=== PATIENT | female | born 1980 | race African-American/Black ===

== ENCOUNTER 2020-06-16 10:40 | Day surgery (SDC) | payer BC, SELFPAY ==
--- NOTE | 2020-06-14 16:57 | HP.PCM_ITS ---
History and Physical Date of Admission: 06/09/20 Joana Yo Physician Specialty: CATEGORY DEVELOPMENT ANALYST H&P Signed Encounter Date: 06/14/2020 Expand AllCollapse All Hide copied text Vicente for details Neelima Reyes is a 39 year old female who presents for mgmt options regarding AUB. Pt saw BOARD OF DIRECTORS and was having large clots with BTB with ocps. Pt has h/o Polyps with removal. Pt scheduled for Hysteroscopy, D&C, polypectomy ? PAST MEDICAL HISTORY PAST MEDICAL HISTORY Diagnosis Date ? Anxiety ? ? Arnold-Chiari malformation, type I (HCC) ? ? diagnosed on MRI November 2011 ? Cervical muscle strain ? ? BWC claim 2011 ? History of cervical polypectomy ? ? Dr. Chasity Jones ([place] [facility]) ? Microcytic anemia ? ? Neck pain 12/29/2012 ? Occipital headache 12/29/2012 ? Paroxysmal SVT (supraventricular tachycardia) (HCC) ? ? did see dermatology sales representative with [facility]; treated with Atenolol in the past. Controlled with Atenolol ? PSVT (paroxysmal supraventricular tachycardia) (HCC) 12/31/2012 ? Right arm numbness 12/29/2012 ? PAST SURGICAL HISTORY PAST SURGICAL HISTORY Procedure Laterality Date ? COLONOSCOPY ? ? ? X2 ? HYSTEROSCOPY WBX WWO D AND C ANDOR POLYPECTOMY ? 2014 ? endometrial polyps ? PAST SURGICAL HISTORY OF ? ? ? D&C for cervical polyp and problesm with heavy periods with pain; everything turned out benign ? PAST SURGICAL HISTORY OF ? 2012, 2013 ? CRANIECTOMY SUBOCCIPITAL ? PAST SURGICAL HISTORY OF ? 2007 ? lipoma ? FAMILY HISTORY FAMILY HISTORY Problem Relation Age of Onset ? Hypertension Mother ? ? Lipids Mother ? ? Seizures Mother ? ? Headache Mother ? ? Hypertension Father ? ? Lipids Father ? ? Cervical Cancer Maternal Grandmother ? ? Breast Cancer Maternal Grandmother ? ? Coronary Artery Disease Maternal Grandfather ? ? Had [place] ? Heart Maternal Grandfather ? ? [place] ? Prostate Cancer Paternal Grandfather ? ? Diabetes Maternal Aunt ? ? Diabetes Maternal Uncle ? ? other (Bone Cancer) Maternal Aunt ? ? Leg; primary bone cancer ? other (anemia) Sister ? ? since childhood; uncertain cause ? other (Heart murmur) Sister ? ? Benign ? other (Chiari malformation) Sister ? ? s/p decompression ? SOCIAL HISTORY Social History ? Tobacco Use ? Smoking status: Never Smoker ? Smokeless tobacco: Never Used Substance Use Topics ? Alcohol use: No ? Drug use: Never ? CURRENT MEDICATIONS Current Outpatient Medications Medication Sig ? gabapentin (NEURONTIN) 600 mg tablet Take 2 tablets by mouth three times daily for 180 days. ? ibuprofen (MOTRIN) 600 mg tablet Take 1 tablet by mouth every 6 hours as needed. ? atenolol (TENORMIN) 25 mg tablet Take 1 tablet by mouth once daily. ? DULoxetine (CYMBALTA) 60 mg capsule Take 1 capsule by mouth once daily. ? Norethindrn A-E Estradiol-Iron (LOMEDIA 24 FE) 1 mg-20 mcg (24)/75 mg (4) tab Take 1 tablet by mouth once daily. ? tiZANidine (ZANAFLEX) 2 mg tablet Take 1 tablet by mouth at bedtime as needed. ? Omeprazole (PRILOSEC) 40 mg capsule Take 1 capsule by mouth once daily. ? busPIRone (BUSPAR) 5 mg tablet Take 1 tablet by mouth twice daily. ? No current facility-administered medications for this visit. ? Allergies As of Date: 06/14/2020 (No Known Allergies) Fully Assessed 05/19/2020 ? ? REVIEW OF SYSTEMS Abdomen: no pain Bladder: no dysuria.. Expanded ROS: GENERAL: Negative for fever Allergies and current medication updated:Yes ? EXAM: BP 136/80 Ht 5' 0 (1.52m) Wt 153 lb (69.4kg) LMP 05/16/2020 BMI 29.88 kg/(m^2). GENERAL: pleasant, female in no apparent distress HEENT: Normocephalic and atraumatic DERMATOLOGY: Normal, without lesions and non-icteric NEURO: alert and oriented x3,exam grossly non-focal EXTREMITIES: normal ? ASSESSMENT AND PLAN: Encounter Diagnosis ? ? ICD-10-CM ? 1. Abnormal uterine bleeding (AUB) N93.9 ? 2. Endometrial polyp N84.0 ? ? 3. Pt has been counseled on risks/benefits and alternatives of surgery including but not limited to anesthesia, bleeding, infection, uterine perforation with subsequent injury to pelvic structures including bowel, bladder, ureters and vessels. Pt wishes to proceed with surgery at this time. 4. Post op restrictions reviewed 5. Covid testing reviewed ? ? Joana Wu MD ? ?
[2020-06-16] VITALS (7 sets, daily range): BP systolic 130–152; BP diastolic 76–98; PULSE 86–106; RESP 16–18; TEMP 36.2–36.8; O2SAT 100; BMI 29.9
[2020-06-16 11:03] LABS: Hematocrit 40.3 % (37-47); Hemoglobin 13.1 g/dL (12.0-15.0); Mean Corp Hgb Conc 32.5 g/dL (32-36); Mean Corpuscular Hgb 29.6 pg (27.0-32.0); Mean Corpuscular Volume 91.2 fL (81-99); Mean Platelet Vol. 9.5 fl (6.2-12.0); Platelet Count 335 K/mm3 (150-450); RBC Distribution Width CV 13.2 % (11.6-14.6); RBC Distribution Width SD 43.9 fl (35.1-43.9); Red Blood Count 4.42 M/mm3 (4.2-5.4); White Blood Count 6.1 K/mm3 (4.4-11.0)
[2020-06-16 11:08] LABS: Internal QC Validated? YES +Cl - CLEAR BKGD
[2020-06-16 11:11] LABS: Pregnancy, Urine Negative Negative
[2020-06-16] MEDS: Lactated Ringers 1,000 ML 100 ML IV ×2 (11:30→13:59)
--- NOTE | 2020-06-16 12:15 | EMB_PTH ---
PATIENT: ASTON LAYNE LOC: [facility] [place] U#:[id number] AGE/SX: 39/F ROOM: RE06/16/[address]: Dr. Joana Wu, MDDOB: 1980 BED: DIS: 06/16/2020 SPEC #: [id number] RECD: 06/16/20 15:16 STATUS: DIAMANTE RELori #: [id number] SANJANA: 06/16/20 12:[address]: Joana Wu DEPT: SURGICAL PATHOLOGY RECD BY: Kay Gutierrez ENTERED: 06/17/20 06:38 SP TYPE: ENDOM BX/C OTHR DR: Dr. Chasity Brand MD Tissues: Endometrium, NOS Procedures: Surgery Specimen Level IV HEADER OPERATION: Hysteroscopy, D & C PRE-OP DIAGNOSIS: Abnormal uterine bleeding; endometrial polyps TISSUE SUBMITTED: Endometrial curettings MICROSCOPIC DIAGNOSIS Endometrium, curettings: Fragments of benign superficial endometrium, inactive. Scant fragments of benign superficial endocervix with squamous metaplasia and rare detached benign squamous epithelium. AM:yvrose 06/20/20 MICROSCOPIC DESCRIPTION Slides are reviewed. GROSS DESCRIPTION Received in fixative is one container labeled with the patient's name and designated endometrial curettings. The specimen consists of multiple fragments of hemorrhagic soft tissue that in aggregate measure 3 x 2.5 x 0.3 cm. The specimen is totally submitted in one cassette. / VENKAT:yvrose 06/17/20 TC:5 CPT: 81350
--- NOTE | 2020-06-16 13:08 | DCINST_ITS ---
Discharge Diet: No Restrictions Discharge Activity: Return to Normal Activity, May Shower, May Take a Tub Bath - in 2 weeks. May resume sexual activity in: 1 week Lifting Restrictions: no restrictions Call your doctor if you observe: Fever of 101 or Higher, Using more than one pad per hour Allergies/Adverse Reactions: Allergies No Known Allergies Allergy (Verified 06/16/20 10:51) Medications to take at Discharge Atenolol [Tenormin (beta Lilia)] 25 mg PO DAILY 06/06/20 Docusate Sodium [Stool Softener] 200 mg PO DAILY 06/06/20 Duloxetine HCl 60 mg PO QHS 06/06/20 Gabapentin [Neurontin] 1,200 mg PO TIDCM 06/06/20 Multivitamin with Minerals [Hair, Skin & Nails] 1 ea PO DAILY 06/06/20 Multivitamin with Minerals [Multiple Vitamin] 1 ea PO DAILY 06/06/20 Norethindrone-E.estradiol-Iron [Junel Fe 24 Tablet] 1 ea PO DAILY 06/06/20 Tizanidine HCl [Zanaflex] 2 mg PO QHS PRN 06/06/20 busPIRone [Buspar] 5 mg PO DAILY 06/06/20 Primary Care Physician: Chasity Brand MD [Primary Care Provider] - Test Results: Test results from this visit will be discussed in further detail at your follow- up appointment, if applicable. Please Follow Up With: Joana Wu MD When: as scheduled in 2 weeks
--- NOTE | 2020-06-16 13:30 | PCM.OPRPT ---
Report of Operation Date of Procedure: 06/16/20 - start time: 1321, end time 1330 Pre-Operative Diagnosis: AUB. Endometrial polyp Post-Operative Diagnosis: AUB Surgery/Procedure Performed:: Hysteroscopy, D&C Description of Surgical Findings:: Normal endometrium, bilateral tubal ostia visualized, uterus sounded to 8cm Type of Anesthesia:: MAC Special Medications: none Specimen's removed: endometrial curettings Drains: none Estimated Blood Loss (mL): <5cc Fluids Replaced: 400 Description of Procedure: informed consent was obtained the patient was taken the operating room she was placed in supine position. She was given anesthesia. She was then placed in the [facility] where she was prepped and draped in the normal sterile fashion. bladder drained. At this time the weighted speculum was placed in the posterior fornix of vagina. Single-tooth tenaculum was used to gently grasp the anterior lip the cervix. At this time the uterine cavity was sounded to approximately 8 cm. Gentle dilatation was performed once adequate dilatation of the cervix was achieved the hysteroscope using normal saline as a distention medium was placed. Tubal ostia visualized no polypoid tissue identified. This time hysteroscopy was complete. Gentle sharp curettage performed. endometrial curettings obtained. Tissue will be sent to pathology for evaluation. Tenaculum removed. Good hemostasis. Instrument, lap count correct x 2. Vaginal Sweep was negative. Grafts/Implants Used: none - Complications none - Admit VTE Documentation VTE Present on Admission: Yes VTE Mechan Device Prophylaxis: SCD's VTE Pharm Prophylaxis ordered?: No
[2020-06-16] MEDS: HYDROcodone Bitartrate/Apap 5/325 Tablet PO (14:51)
== END 2020-06-16 15:42 | disposition home or self-care (01) ==
LOC: SDC 10:40 → AC 10:42
PROVIDERS: Anesthesiology; PCP Internal Medicine; Referring Provider Obstetrics & Gynecology; Visit Provider Obstetrics & Gynecology
PROC: 0UB98ZZ Excision of Uterus, Via Natural or Artificial Opening Endoscopic (ICD-10-PCS; CPT 58558; principal; 2020-06-16 12:00)
DX: N87.9 Dysplasia of cervix uteri, unspecified (principal); F41.9 Anxiety disorder, unspecified; F32.9 Major depressive disorder, single episode, unspecified; G93.5 Compression of brain; Z86.73 Personal history of transient ischemic attack (TIA), and cerebral infarction without residual deficits; Z20.828 Contact with and (suspected) exposure to other viral communicable diseases; Z79.899 Other long term (current) drug therapy
CPT/HCPCS: 00952; 58558; 36415; 81025; 85027; 87635; 88305; C9803; J7120; U0003

== ENCOUNTER 2020-11-10 11:19 | Day surgery (SDC) | payer OTHER, SELFPAY ==
[2020-06-16 11:13] VITALS: BMI 29.9
--- NOTE | 2020-11-08 12:21 | PCM.HP.BLA ---
History and Physical Date of Admission: 11/10/20 Pre-Op History and Physical ? HPI: The patient is a 39 year old female presenting for discussion regarding management of fibroid. Pt has a 6cm pedunculated fibroid that she feels is causing her abdominal discomfort and pressure. After discussion regarding management options including expectant pt would like to proceed with surgical intervention. Pt understands that if the fibroid is not pedunculated by subserosal or intramural this could breach the uterine cavity and can impact future child bearing. She is scheduled for Diagnostic laparoscopy, Myomectomy possible ex lap, for pelvic pain and fibroid uterus on 11/10/20. Procedure discussed along with risks, benefits and complications. Other alternatives discussed for management. Consent form signed? Yes. ? ? PAST MEDICAL HISTORY PAST MEDICAL HISTORY Diagnosis Date ? Anxiety ? ? Arnold-Chiari malformation, type I (HCC) ? ? diagnosed on MRI November 2011 ? Cervical muscle strain ? ? C claim 2011 ? History of cervical polypectomy ? ? Dr. Chasity Jones ([place] [facility]) ? Microcytic anemia ? ? Neck pain 12/29/2012 ? Occipital headache 12/29/2012 ? Paroxysmal SVT (supraventricular tachycardia) (HCC) ? ? did see trailer truck driver with [facility]; treated with Atenolol in the past. Controlled with Atenolol ? PSVT (paroxysmal supraventricular tachycardia) (HCC) 12/31/2012 ? Right arm numbness 12/29/2012 ? ? PAST SURGICAL HISTORY PAST SURGICAL HISTORY Procedure Laterality Date ? COLONOSCOPY ? ? ? X2 ? HYSTEROSCOPY BX W/WO D&C ? 05/2020 ? [facility]- benign- no polyps. Dr. Yo ? HYSTEROSCOPY WBX O D AND C ANDOR POLYPECTOMY ? 2014 ? endometrial polyps ? PAST SURGICAL HISTORY OF ? 06/16/2020 ? D&C for cervical polyp and problesm with heavy periods with pain; everything turned out benign ? PAST SURGICAL HISTORY OF ? 2012, 2013 ? CRANIECTOMY SUBOCCIPITAL ? PAST SURGICAL HISTORY OF ? 2007 ? lipoma ? ? ? CURRENT MEDICATIONS Current Outpatient Medications Medication Sig Dispense Refill ? atenolol (TENORMIN) 25 mg tablet Take 1 tablet by mouth once daily. 90 tablet 3 ? DULoxetine (CYMBALTA) 60 mg capsule Take 1 capsule by mouth once daily. 30 capsule 3 ? Norethindrone Acet-Ethinyl Est (LOESTRIN 1.5, ,) 1.5-30 mg-mcg Take 1 tablet by mouth once daily. 1 Package 11 ? busPIRone (BUSPAR) 5 mg tablet Take 1 tablet by mouth twice daily. 180 tablet 0 ? tiZANidine (ZANAFLEX) 2 mg tablet Take 1 tablet by mouth at bedtime as needed. 30 tablet 2 ? omeprazole (PRILOSEC) 40 mg capsule Take 1 capsule by mouth once daily. 90 capsule 3 ? ibuprofen (MOTRIN) 600 mg tablet Take 1 tablet by mouth every 6 hours as needed. 60 tablet 2 ? gabapentin (NEURONTIN) 600 mg tablet Take 2 tablets by mouth three times daily for 180 days. 180 tablet 5 ? ibuprofen (MOTRIN) 600 mg tablet Take 1 tablet by mouth every 6 hours as needed. 30 tablet 1 ? simethicone, chewable (MYLICON) 80 mg chewable tablet Take 1 tablet by mouth every 6 hours as needed. 30 tablet 0 ? No current facility-administered medications for this visit. ? ? ALLERGIES: Patient has no known allergies. ? PERSONAL HISTORY: SOCIAL HISTORY Social History ? Tobacco Use ? Smoking status: Never Smoker ? Smokeless tobacco: Never Used Substance Use Topics ? Alcohol use: No ? Drug use: Never ? FAMILY HISTORY: FAMILY HISTORY FAMILY HISTORY Problem Relation Age of Onset ? Hypertension Mother ? ? Lipids Mother ? ? Seizures Mother ? ? Headache Mother ? ? Hypertension Father ? ? Lipids Father ? ? Cervical Cancer Maternal Grandmother ? ? Breast Cancer Maternal Grandmother ? ? Coronary Artery Disease Maternal Grandfather ? ? Had [place] ? Heart Maternal Grandfather ? ? [place] ? Prostate Cancer Paternal Grandfather ? ? Diabetes Maternal Aunt ? ? Diabetes Maternal Uncle ? ? other (Bone Cancer) Maternal Aunt ? ? Leg; primary bone cancer ? other (anemia) Sister ? ? since childhood; uncertain cause ? other (Heart murmur) Sister ? ? Benign ? other (Chiari malformation) Sister ? ? s/p decompression ? ? REVIEW OF SYMPTOMS: negative except as noted above PHYSICAL EXAMINATION: ? VITALS: Blood pressure 110/70, weight 160 lb (72.6 kg), last menstrual period 09/22/2020. ? GENERAL: The patient is well nourished, well hydrated in no acute distress. , The patient is oriented to time, place, and person. NECK: full range of motion GENITALIA: deferred WET PREP: Not indicated ? Indication Abnormal uterine bleeding Impression Uterus Normal size and contour. There are two pedunculated fibroids, largest is 6.5cm in greatest dimension on posterior aspect of uterus. the endometrial thickness is 4.8mm, polyp noted at fundal aspect measuring 9mm in greatest dimension. Both ovaries are polycystic no free fluid in cul-de-sac Recommendations consider hysteroscopic resection of endometrial polyp. Follow up as clinically indicated Menstrual History LMP on 05/16/2020 Method Transvaginal, 3D ultrasound examination. Uterus Uterus: Visualized Uterus position: anteverted Uterus long 74 mm Uterus ap 40 mm Uterus tr 44 mm Uterus Vol 67.1 cm? Endometrial thickness, total 4.8 mm Uterine fibroid D1 12 mm Uterine fibroid D2 11 mm Uterine fibroid D3 9 mm Uterine fibroid mean 10.7 mm Uterine fibroid vol 0.622 cm? Uterine fibroids findings: Fundal. Pedunculated Uterine fibroid D1 65 mm Uterine fibroid D2 39 mm Uterine fibroid D3 52 mm Uterine fibroid mean 52.0 mm Uterine fibroid vol 69.021 cm? Uterine fibroids findings: Posterior, right. Pedunculated Uterine polyp D1 9 mm Uterine polyp D2 5 mm Uterine polyp D3 8 mm Uterine polyp mean 7.3 mm Uterine polyp findings: Fundal Right Ovary Rt ovary: Visualized Rt ovary morphology: premenopausal polycystic Rt ovary D1 24 mm Rt ovary D2 20 mm Rt ovary D3 17 mm Rt ovary Vol 4.2 cm? Left Ovary Lt ovary: Visualized Lt ovary morphology: premenopausal polycystic Lt ovary D1 27 mm Lt ovary D2 21 mm Lt ovary D3 16 mm Lt ovary Vol 4.7 cm? Cul de Sac Visualized. no free fluid visualized Performed By: Radha Tidwell RDMS, RVT Read By: Joana Wu M.D. Results ? Scan on 05/27/2020 ?2:35 PM by Joana Yo ? ? ? IMPRESSION: Fibroid uterus, pelvic pain ? PLAN: Diagnostic laparoscopy, Myomectomy, Possible ex lap ? Pt has been counseled on risks/benefits and alternatives of surgery including but not limited to anesthesia, bleeding, infection, injury to pelvic structures including bowel, bladder, ureters and vessels. Pt wishes to proceed with surgery at this time.Pt understands if bleeding and unable to control there is possibility of hysterectomy which would not allow for future child bearing. ? PRE OP instructions reviewed- ERAS protocol reviewed ? Post op meds given- will give narcotic rx if indicated on day of surgery. ? I have reviewed and updated past medical and surgical history, medications and allergies Jaona Yo MD Procedure Criteria Procedure Type: Elective COVID Risk Discussion: The surgeon/proceduralist and patient have discussed in detail the risk of exposure to and/or potential harm posed by the COVID-19 virus with having a surgery/procedure at this time versus the risk of delaying the surgery/procedure. It is not possible to know either the risk of delaying the surgery or procedure or chance of getting an infection with perfect accuracy, but a joint decision was made between the patient and the surgeon/proceduralist to proceed at this time with the scheduled surgery/procedure as indicated on the consent form.
--- NOTE | 2020-11-09 09:44 | EKG12_ITS ---
Test Reason : PRE OP Blood Pressure : / mmHG Vent. Rate : 082 BPM Atrial Rate : 082 BPM P-R Int : 146 ms QRS Dur : 068 ms QT Int : 340 ms P-R-T Axes : 068 058 040 degrees QTc Int : 397 ms Normal sinus rhythm Normal ECG Confirmed by LINDSAY MAI, DANNA ([id number]), magazine editor BRIANNA VEGA ([id number]) on 11/10/2020 12:24:36 PM Referred By: Joana Wu Confirmed By:GENESIS MONTOYA MD
[2020-11-10 12:00] LABS: Hematocrit 37.9 % (37-47); Hemoglobin 12.3 g/dL (12.0-15.0); Mean Corp Hgb Conc 32.5 g/dL (32-36); Mean Corpuscular Hgb 29.1 pg (27.0-32.0); Mean Corpuscular Volume 89.8 fL (81-99); Mean Platelet Vol. 9.5 fl (6.2-12.0); Platelet Count 367 K/mm3 (150-450); RBC Distribution Width SD 42.8 fl (35.1-43.9); Red Blood Count 4.22 M/mm3 (4.2-5.4); White Blood Count 6.5 K/mm3 (4.4-11.0)
[2020-11-10] MEDS: Lactated Ringers 1,000 ML 40 ML IV (12:02)
[2020-11-10 12:03] LABS: Internal QC Validated? YES +Cl - CLEAR BKGD; Pregnancy, Urine Negative Negative
[2020-11-10 12:06] VITALS: BP 122/83; PULSE 81; RESP 18; TEMP 37.5; O2SAT 100; BMI 31.4
[2020-11-10 12:13] LABS: Anion Gap 5 (5-15); BUN 6 mg/dL (7-18); BUN/Creat Ratio 6.8 RATIO (10-20); Calcium,Total 8.7 mg/dL (8.5-10.1); Chloride 108 mmol/L (98-107); Creatinine, Serum 0.89 mg/dL (0.55-1.02); EST Glomerular Filtration Rate 76 mL/min (>60); Est Glom Filt Rate - Afr Amer 92 mL/min (>60); Estimated Creatinine Clearance 62.16 ml/min; Glucose 181 mg/dL (74-106); Potassium 3.6 mmol/L (3.5-5.1); Sodium Level 138 mmol/L (136-145)
[2020-11-10] MEDS: Acetaminophen 500 MG Tablet 1000 MG PO (12:14)
[2020-11-10] MEDS: Scopolamine 1mg/72hr Patch 1 PATCH TD (12:21)
[2020-11-10] MEDS: Celecoxib 200 MG Capsule 400 MG PO (12:22)
--- NOTE | 2020-11-10 12:26 | DCINST_ITS ---
Discharge Diet: No Restrictions, - - Increase fluid intake for 48 hours. Discharge Activity: Return to Normal Activity, May Drive - when you are no longer taking narcotic pain medications., May Shower, May Take a Tub Bath - in 7 days., - - Ambulate often the next week after surgery. May shower in (days): 1 May resume sexual activity in: 2 weeks Lifting Restrictions: 20-25 Additional Activity Instructions:: Nothing in the vagina for the next 5 days. Call your doctor if your incision/area has: Continuous Slow Oozing, Sudden Increased Bleeding, Increased Pain/ Swelling, Increased Redness, Foul Smelling Discharge, Swelling at the incision site Call your doctor if you observe: Fever of 101 or Higher, Using more than one pad per hour Cleanse incision/area with: Keep Dressing Clean & Dry, - - Skin glue over your incision, do not pick it off. You may let soap and water run over the incision sites and dab dry. Allergies/Adverse Reactions: Allergies No Known Allergies Allergy (Verified 11/10/20 11:59) Medications to take at Discharge Atenolol [Tenormin (beta Lilia)] 25 mg PO DAILY 06/06/20 Docusate Sodium [Stool Softener] 200 mg PO DAILY 06/06/20 Gabapentin [Neurontin] 1,200 mg PO TIDCM 06/06/20 Multivitamin with Minerals [Multiple Vitamin] 1 ea PO DAILY 06/06/20 Norethindrone-E.estradiol-Iron [Junel Fe 24 Tablet] 1 ea PO DAILY 06/06/20 RX: Duloxetine HCl 60 mg PO QHS 06/06/20 Tizanidine HCl [Zanaflex] 2 mg PO QHS PRN 06/06/20 busPIRone [Buspar] 5 mg PO DAILY 06/06/20 Ascorbic Acid/Vitamin E/Biotin [Hair Skin Nails-Biotin Gummies] 2 each PO DAILY 11/03/20 Cholecalciferol (Vitamin D3) [Vitamin D3] 125 mcg PO DAILY 11/03/20 Cider Vinegar [Apple Cider Vinegar] 1,000 mg PO DAILY 11/03/20 Inulin/Chromium Picolinate [Fiber Gummies] 2 each PO DAILY 11/03/20 Primary Care Physician: Chasity Brand MD [Primary Care Provider] - Test Results: Test results from this visit will be discussed in further detail at your follow- up appointment, if applicable. Please Follow Up With: Joana Wu MD When: 2 weeks call [phone] if you need to be scheduled
--- NOTE | 2020-11-10 12:29 | DCINST_ITS ---
- Discharge Diagnoses Current Active Problems: fibroid uterus You will use the following diet at home:: No restrictions Your food should be the consistency of: Regular Discharge Activity: Return to Normal Activity, May Drive - when pain is controlled, May not drive while taking narcotic pain medications., May Shower May shower in (days): 1 May resume sexual activity in: 2 weeks Lifting Restrictions: 20-25lbs Call your doctor if your incision/area has: Continuous Slow Oozing, Sudden Increased Bleeding, Increased Pain/ Swelling, Increased Redness, Foul Smelling Discharge, Swelling at the incision site Call your doctor if you observe: Fever of 101 or Higher, Using more than one pad per hour, Uncontrolled pain Cleanse incision/area with: Keep Dressing Clean & Dry, - - You have skin glue over your incision sites, do not pick it off. You may let soap and water run over the incisions and dab dry. Instructions: ED Tumor, Uncertain Cause Allergies/Adverse Reactions: Allergies No Known Allergies Allergy (Verified 11/10/20 11:59) Medications to take at Discharge Atenolol [Tenormin (beta Lilia)] 25 mg PO DAILY 06/06/20 Docusate Sodium [Stool Softener] 200 mg PO DAILY 06/06/20 Duloxetine HCl 60 mg PO QHS 06/06/20 Gabapentin [Neurontin] 1,200 mg PO TIDCM 06/06/20 Multivitamin with Minerals [Multiple Vitamin] 1 ea PO DAILY 06/06/20 Norethindrone-E.estradiol-Iron [Junel Fe 24 Tablet] 1 ea PO DAILY 06/06/20 Tizanidine HCl [Zanaflex] 2 mg PO QHS PRN 06/06/20 busPIRone [Buspar] 5 mg PO DAILY 06/06/20 Ascorbic Acid/Vitamin E/Biotin [Hair Skin Nails-Biotin Gummies] 2 each PO DAILY 11/03/20 Cholecalciferol (Vitamin D3) [Vitamin D3] 125 mcg PO DAILY 11/03/20 Cider Vinegar [Apple Cider Vinegar] 1,000 mg PO DAILY 11/03/20 Inulin/Chromium Picolinate [Fiber Gummies] 2 each PO DAILY 11/03/20 Primary Care Physician: Chasity Brand MD [Primary Care Provider] - Test Results: Test results from this visit will be discussed in further detail at your follow- up appointment, if applicable. Please Follow Up With: Joana Wu MD When: 2 weeks call [phone] for appointment if you need to schedule
[2020-11-10 12:30] LABS: Bedside Glucose 172 mg/dL (70-110)
[2020-11-10] MEDS: Ondansetron 4 MG/2 ML Vial IV (13:10)
[2020-11-10] MEDS: Bupivacaine Mpf 0.5% 30 ML VIAL (13:15)
--- NOTE | 2020-11-10 13:15 | UT_PTH ---
PATIENT: ASTON LAYNE LOC: [facility] [place] U#:[id number] AGE/SX: 39/F ROOM: RE11/10/[address]: Dr. Joana Wu, MDDOB: 1980 BED: DIS: 11/10/2020 SPEC #: [id number] RECD: 11/10/20 15:14 STATUS: DIAMANTE EMMANUEL #: [id number] SANJANA: 11/10/20 13:[address]: Joana Wu DEPT: SURGICAL PATHOLOGY RECD BY: Kay Gutierrez ENTERED: 11/11/20 06:28 SP TYPE: UTERUS OTHR DR: Dr. Chasity Brand MD Tissues: Uterus, NOS Procedures: Surgery Specimen Level IV HEADER OPERATION: ERAS, diagnostic laparoscopy, myomectomy, mini laparotomy PRE-OP DIAGNOSIS: Fibroid uterus, pelvic pain TISSUE SUBMITTED: Uterine fibroid MICROSCOPIC DIAGNOSIS Uterine fibroid, myomectomy: Leiomyomas (1.5 and 6 cm in greatest dimension). VENKAT:yvrose 11/14/2020 MICROSCOPIC DESCRIPTION Slides are reviewed. GROSS DESCRIPTION Received in fixative is one container labeled with the patient's name and designated uterine fibroid. The specimen consists of two firm nodules weighing in aggregate 65 gm and measuring 1.5 x 1.5 x 1 cm and 6 x 5 x 3.5 cm. Sections of these masses reveal rucker whorled cut surfaces without areas of hemorrhage, necrosis or cystic degeneration. The larger mass also shows focal area of congestion. Blacking Machine Operator sections are submitted in six cassettes as follows: 1 - smaller nodular mass, 2-6 - larger nodular mass. / VENKAT:yvrose 11/11/20 TC:1 CPT: 37439
[2020-11-10] MEDS: Triamcinolone Acetonide 40 MG/ML Vial (14:17)
--- NOTE | 2020-11-10 14:20 | OP.PCM_ITS ---
Report of Operation Date of Procedure: 11/10/20 - start time: 1312 End time: 1437 Pre-Operative Diagnosis: fibroid uterus, pelvic pain Post-Operative Diagnosis: same, left inguinal hernia Surgery/Procedure Performed:: Laparoscopic Myomectomy of pedunculated fibroids Description of Surgical Findings:: large loculated fibroid arising from the posterior aspect of the uterus as well as a smaller fibroid arising at the fundal aspect. left inguinal hernia noted. The left tube was pulled into the inguinal hernia it was easily released. Both ovaries appeared normal. electronic science teacher: Nico Oro- assisted with camera manipulation, Manipulation of uterus and removal of fibroids from cavity and suturing skin. No qualified resident available Type of Anesthesia:: General Special Medications: 0.5% marcaine, Kenalog 40mg Specimen's removed: uterine fibroids Drains: none Estimated Blood Loss (mL): 25 Fluids Replaced: 1000 Description of Procedure: Was taken to the operating room where she was placed in the supine position. She was prepped and draped in normal sterile fashion. At this time the bladder was drained minimal urine at that time was expelled. At this time the weighted speculum is placed in the posterior fornix vagina single-tooth tenaculum was used to digress anterior lip the cervix. At this time uterine manipulator was placed that difficulty. Attention was then turned to the abdominal portion where the legs were then placed in parallel with the abdomen. At this time 2 towel clamps were placed superior to the umbilicus percent Marcaine was injected and the previous keloid scarred incision was removed and a small incision was made and a 5 mm trocar was placed under direct visualization. Once proper placement was achieved gas was used to insufflate the intra-abdominal cavity. On inspection of the cavity large pedunculated fibroid extending up the posterior aspect of the uterus as well as a fundal smaller fibroid that was pedunculated. At this time to lower quadrant ports were placed first Marcaine was injected in the right and left lower quadrant ports were placed under direct visualization. At this time the LigaSure with the monopolar tip was used to coagulate and ligate across the base of the pedunculated fibroid. The larger fibroid was placed in the posterior cul-de-sac and the smaller fundal fibroid was then coagulated and ligated across the base of the pedunculated fibroid. This was also placed in the posterior cul-de-sac. At this time a suprapubic incision was made. Marcaine was first injected knife was used to make this incision fascia was identified and grasped with Bunker's and entered using the scalpel. At this time the edges of the fascia were tagged with a 0 Vicryl suture. And the large tear fibroid was brought through the uterine incision intact. I was unable to get the smaller fibroid in the same bag so at this time a second bag was deployed through the suprapubic incision the towel clamps were used to create a seal in the abdominal he was reinsufflated and the smaller fibroid was placed in the bag and carried out through the suprapubic port. This time then the suprapubic incision was closed using 0 Vicryl on a UR 6 needle. Fascia was closed subcu layer was then closed using a 2-0 Vicryl in a running fashion. At this time the gas was turned back on the abdominal cavity was reinsufflated and inspection was performed. Malik was placed over the p osterior aspect of the base of the removed fibroid as well as the fundal aspect. Excellent hemostasis was appreciated irrigation was performed in the cul-de-sac. The trochars were then removed without difficulty. At this time the right and left lower quadrant ports were closed using 4-0 Monocryl. The suprapubic incision was closed using 4-0 Monocryl in a subcutaneous fashion. The supraumbilical vision and resection of the previous scar was closed using 4- 0 Monocryl in a subcutaneous fashion. Kenalog 40 mg total was injected around these larger incision sites to prevent keloid formation. Instrument lap needle count were correct x2. There were no complications with this procedure. Anticipated normal postoperative course. Grafts/Implants Used: none - Complications none - Admit VTE Documentation VTE Present on Admission: Yes VTE Mechan Device Prophylaxis: SCD's VTE Pharm Prophylaxis ordered?: No
[2020-11-10 14:47] VITALS: BP 122/83; BP 128/90; PULSE 79; RESP 16; TEMP 36.8; O2SAT 97
[2020-11-10] MEDS: Lactated Ringers 1,000 ML 70 ML IV (14:55)
[2020-11-10 15:00] VITALS: BP 122/83; BP 130/92; PULSE 84; RESP 16; O2SAT 100
[2020-11-10 15:15] VITALS: BP 122/83; BP 132/91; PULSE 88; RESP 16; O2SAT 100
[2020-11-10 15:30] VITALS: BP 122/83; BP 134/93; PULSE 82; RESP 16; TEMP 37.1; O2SAT 100
[2020-11-10] MEDS: HYDROcodone Bitartrate/Apap 5/325 Tablet PO (16:31)
[2020-11-10 16:43] VITALS: BP 122/83; BP 132/80; PULSE 87; RESP 16; TEMP 37.1; O2SAT 98
== END 2020-11-10 16:56 | disposition home or self-care (01) ==
LOC: SDC 11:22 → AC 11:23
PROVIDERS: Anesthesiology; PCP Internal Medicine; Referring Provider Obstetrics & Gynecology; Visit Provider Obstetrics & Gynecology
PROC: (CPT 49320; principal; 2020-11-10 13:00)
DX: D25.9 Leiomyoma of uterus, unspecified (principal); K40.90 Unilateral inguinal hernia, without obstruction or gangrene, not specified as recurrent; F41.9 Anxiety disorder, unspecified; F32.9 Major depressive disorder, single episode, unspecified; Z79.899 Other long term (current) drug therapy; Z20.822 Contact with and (suspected) exposure to COVID-19; Z86.73 Personal history of transient ischemic attack (TIA), and cerebral infarction without residual deficits
CPT/HCPCS: 58545; 80048; 81025; 82962; 83735; 85027; 87426; 88305; 88307; 93005; C9803; J7120; J2405